=== PATIENT | male | born 1965 | race Caucasian/White ===

== ENCOUNTER 2017-07-01 02:25 | Inpatient (IN) | payer OTHER ==
[~2017-07-01] VITALS: Ht 170.2 cm; Wt 102.3 kg
[2017-07-01] VITALS (9 sets, daily range): BP systolic 121–146; BP diastolic 77–98; PULSE 63–110; RESP 18–22; O2SAT 93–98
[2017-07-01] MEDS ORDERED: Polyethylene Glycol (PEG) 17 Gm Powder PO PRN (05:00)
[2017-07-01] MEDS ORDERED: Alum-Mag Hydrox-Simeth 30 mL Suspension PO PRN (05:00)
[2017-07-01] MEDS ORDERED: Ondansetron 2 mg/mL 2 mL Inj IVPUSH PRN (05:00)
[2017-07-01] MEDS ORDERED: Acetaminophen IV 1,000 MG in IV Premix 1 EACH IV ONE (05:05)
[2017-07-01] MEDS ORDERED: Piperacillin-Tazo 3.375 Gm Inj 3.375 GM in Dextrose 5% Minibag Plus 50 ML IV ONE (05:05)
--- NOTE | 2017-07-01 05:13 | PCM.HPMED ---
Subjective Date of Service Jul 01, 2017 Primary Provider: Admitting Physician: Denisha Bashir DO Primary Care Physician: Keegan Whiting MD Attending Physician: Denisha Bashir DO Admit Status: Direct Admit (from [facility]) Chief Complaint: Altered mental status, sepsis History of Present Illness: Mathew Martin is a disheveled, sedated 51-year-old male who is a direct admission from [facility]. As he is unresponsive due to sedation and not in our EHR, we have very little information at this time in regards to his past medical history other than the fact that he is on dialysis with Dr. Whiting and has a cellulitic appearing LLE. The following history is taken from the [facility] record in his paper chart: Mathew finished his dialysis session around 2144 on 06/30/17, but became agitated and unsure of why he was there. He was taken to the hospital where it was found he was tachycardic, tachypneic, slightly febrile. His bloodwork was significant for a WBC count of 23.5, BUN/Cr of 4.3/6.1. Blood cultures were drawn and 1g of vancomycin was administered prior to transfer to [facility]. Review of Systems: A complete review of systems cannot be obtained due to patient unresponsiveness. Allergies Coded Allergies: No Known Drug Allergies (Unverified Allergy, Unknown, 07/01/17) No Known Allergies (Unverified , 07/01/17) Home Medications He presents from [facility] with a list of medications; however there are no doses so we are not sure of its accuracy. PMH CKD requiring Dialysis via Left AV fistula Surgical History Left AV Fistula Left Ankle Family History Unable to obtain due to patient's unresponsiveness. Social History Smoking Status: Unknown if Ever Smoker Exam Vital Signs Vital Sign - Last Date Time Temp Pulse Resp B/P Pulse Ox O2 Delivery O2 Flow Rate FiO2 07/01/17 04:44 110 07/01/17 04:18 38.3 20 121/77 97 Nasal Cannula 2.00 Exam General: Disheveled, foul-smelling, unkept male lying sedated in no acute distress. He is snoring quite loudly. HEENT: Normocephalic, atraumatic. External ears without defect. Pupils equal, round, and reactive to light and accommodation. Membranes pink and moist. Neck: Supple, nontender. No jugular venous distension or thyromegaly. Cardiovascular: Tachycardic with normal rhythm with no murmurs, rubs, or gallops appreciated. Left arm AV Fistula present. Pulmonary: Clear to auscultation bilaterally with no crackles, wheezes, or rhonchi. Abdomen: Bowel tones present. Soft, nontender, nondistended. No guarding/ rebound but patient is quite sedated. Extremities: He has long finger and toenails with dirt underneath the majority. LLE is erythematous, warm, nontender although this is hard to assess due to sedation. Skin: Normal temperature, turgor, and texture. LLE as above. Neurological: Unable to obtain due to patient's status Psychiatric: Unable to obtain due to patient's status. Lab and Diagnostics Labs Labs from [facility] in paper chart: H&H 8.8 and 26.1, WBC 23.5, platelets 348 Sodium 135, potassium 3.7, chloride 95, bicarbonate 25, BUN 4.3, creatinine 6.1 , glucose 92 Lactic acid 1.5 Microbiology Blood cultures drawn at [facility]; call for results as he was given vancomycin prior to transfer Assessment & Plan Mathew Martin is a disheveled, sedated 51-year-old male who is a direct admission from [facility]. As he is unresponsive due to sedation and not in our EHR, we have very little information at this time in regards to his past medical history other than the fact that he is on dialysis with Dr. Whiting and has a cellulitic appearing LLE. Metabolic encephalopathy, present on admission. Acute. Ongoing. - Unsure of etiology at this point due to patient status and scant history - Ammonia at [place] was within normal limits; not hypoglycemic with glucose 92 - Unlikely hypoxia as patient is saturating well - No accurate medication list with patient; day team to do med rec - UTox and UA ordered, pending - ABG ordered, pending Sepsis, present on admission. Acute. Ongoing. - Tachycardic, WBC 23.5 on admission with source likely LLE cellulitis - Lactic Acid was 1.5 at [place]; redrawn on admission - Pt received 1g vanco at [place] prior to transfer - 1 dose of Zosyn ordered for broad coverage, refine when history is obtainable - Repeat blood cultures ordered - Holding fluids at this time as he is stable and his LA was 1.5, unsure of how much fluid he received at [place] prior to transfer LLE Cellulitis, present on admission. Acute. Ongoing. - Unsure of duration, symptoms as patient is sedated - Blood cultures drawn at [place]; he received 1g vancomycin prior to transfer so ours may be uninformative - Pt received 1g vanco at [place], 1 dose Zosyn empirically on admission - Refine antibiotics when further history is obtainable or cultures return susceptibilities Anion Gap Metabolic Acidosis, present on admission. Acute. Ongoing. - Unlikely DKA/HHS as Glucose was 92; unlikely Lactic as LA was 1.5; salicylate level was negative - Unlikely ethylene glycol/methanol as patient attended dialysis without incident or noted mental status - Potentially due to recent dialysis and needs time to equilibrate - ABG ordered, pending - Gap is 36 using CMP from [place] - Will hold fluids at this time as he is stable pending repeat CMP CKD requiring Dialysis with Dr. Whiting, present on admission. Chronic. - Pt had dialysis session yesterday, ending at 9pm when his AMS started - Unsure of etiology (HTN, DM, CHF, etc.), baseline Cr or dry weight, schedule - Day team to contact Dr. Whiting's office for further elucidation if patient is unable to verify details - Nephrology consult ordered as he will likely need to dialyze at some point; day team to officially consult PRN Medications - Acetaminophen as needed for mild pain/fever/headache - Bowel regimen as needed - Antiemetic as needed Patient status: Patient is admitted under inpatient status with expected length of stay greater than 2 midnights due to severity of presenting symptoms, risk of adverse event, and complexity of treatment plan. VTE Prophylaxis: Sub-Q Heparin (Unfractionated) Resuscitation Status: CPR: Attempt Resuscitation Attending Statement The patient was seen and examined together with house staff on 07/01/2017 and I agree with the history, exam and plan as outlined in the note above. Godwin Norris DO Jul 01, 2017 05:13 Denisha Bashir DO Jul 01, 2017 06:09
[2017-07-01] MEDS ORDERED: 0.9% Sodium Chloride 250 ML ONE (05:29)
--- NOTE | 2017-07-01 05:57 | ABG ---
DateTimeAnalyzed 05:51:00 -_ HCO3- ___19.0__ -mmol/L 22.0 26.0 ABE ___-3.6__ -mmol/L -2.0 2.0 FIO2 ___21.0__ -% Drawn By AF - B 757 -mmHg tO2 ___11.6__ -Vol%
--- NOTE | 2017-07-01 06:15 | ABG ---
DateTimeAnalyzed 06:08:00 -_ pH ____7.460 - 7.350 7.450 pCO2 ___33.0__ -mmHg 35.0 45.0 pO2 ___77.6__ -mmHg 69.0 116 HCO3- ___23.2__ -mmol/L 22.0 26.0 ABE ____0.0__ -mmol/L -2.0 2.0 tHb ____7.9__ -g/dL 12.0 18.0 O2Hb ___92.8__ -% COHb ____1.7__ -% 0.0 1.5 MetHb ____1.2__ -% 0.4 1.5 sO2 ___95.6__ -% 25.0 FIO2 ___32.0__ -% Drawn By MK - Date/Time Notified____ 06:15:00 -_ Liter_Flow ____2.0__ -L/min Oxygen Device 1 __CANNULA - Notified By MK - B 757 -mmHg tO2 ___10.4__ -Vol% Michael test _Positive -
--- NOTE | 2017-07-01 07:12 | NUR ---
Admit Pt arrived on the floor lethargic. Responsive to yes or no questions by nodding. Pt is febrile. Administered Tylenol IV per MD. Telemetry monitoring noted ST. IV Zosyn administered per MD. Pt is very hard of hearing. Pt was agitated when awoken @0600 and spit on the staff's face. No significant history has been obtained as pt has been a poor historian.
[2017-07-01] MEDS: Heparin 5,000 Unit/mL Inj SUBQ SCH ×3 (07:37→23:54)
[2017-07-01 07:39] LABS: BASOPHILS % (AUTO) 0.1 % (0-3); MONOCYTES % (AUTO) 4.8 % (4-12); Mean Corpuscular Hemoglobin 30.1 pg (27.0-35.0); Mean Corpuscular Volume 95.1 fL (81-100); NEUTROPHILS % (AUTO) 89.5 % (40-74); Platelet Count 302 bil/L (150-400)
[2017-07-01] MEDS ORDERED: AMLO10TA3 PO (10:28)
[2017-07-01] MEDS ORDERED: SPIR50TA2 PO (10:28)
[2017-07-01] MEDS ORDERED: SEVE800T7 PO (10:28)
[2017-07-01] MEDS ORDERED: METO10TA7 PO (10:28)
[2017-07-01] MEDS ORDERED: NEPHVIT PO (10:28)
[2017-07-01] MEDS ORDERED: TORS100T3 PO (10:28)
--- NOTE | 2017-07-01 14:44 | NUR ---
mentation pt. this am drowsy, unable to stay awake during conversations; only answering some yes and no questions intermittently. Throughout shift, pt. has become more alert, knows he is in the hospital, does not remember why; pt. very [place], states that he isn't confused, he just can't hear. Pt. able to sit at eob, using call light appropriately; states he is feeling fine. Spoke with MD regarding ordering abx.
--- NOTE | 2017-07-01 15:23 | CONS ---
[address] [address] CONSULTATION REPORT PATIENT: JANINE PEACE : 1965 MR#: [id number] ADMIT: 07/01/2017 JOB ID: [id number] DATE OF SERVICE: 07/01/2017 NEPHROLOGY CONSULTATION: REQUESTING PHYSICIAN: Denisha Bashir DO. REASON FOR CONSULTATION: Management of end-stage renal disease. CHIEF COMPLAINT: Altered mental status, transferred from [facility]. PRESENT ILLNESS: This is a 51-year-old, male with history of end-stage renal disease with dialysis dependence who was transferred directly from [facility] due to altered mental status. The patient is very drowsy. He is a very poor historian. I cannot obtain any meaningful history from the patient. History was obtained from the medical record. According to the chart and admission note, he finished dialysis last night and found to be agitated and disoriented. He was brought to the emergency department, where he was found to have tachycardia and fever. Initial blood work showed leukocytosis with WBC of 23.5. Blood cultures were obtained. He received 1 g of vancomycin and subsequently was transferred to [facility]. He is a patient of Dr. Whiting. He is dialyzed at [facility]. According to the medication list he takes amlodipine, metolazone, Renvela, spironolactone, torsemide and Hernan-Piyush. He was found to have cellulitis on the left lower extremity. His initial white blood count here at our hospital was 15.6. Procalcitonin was 4.98. Blood culture by far is pending. He is currently on Zosyn 3.375 g given x1 last night. Renal was consulted to resume dialysis while he is hospitalized. PAST MEDICAL HISTORY: 1. End-stage renal disease, hemodialysis dependent, on dialysis every Thursday, , Thursday at [facility]. He is the patient of Dr. Whiting. 2. Hypertension. 3. Anemia of chronic kidney disease. 4. Renal osteodystrophy. PAST SURGICAL HISTORY: Status post left AV fistula creation. FAMILY HISTORY: Unable to obtain. SOCIAL HISTORY: Unable to obtain. MEDICATION: Reviewed. He takes amlodipine, metolazone, Renvela, spironolactone, torsemide, vitamin B complex and vitamin C. ALLERGIES: No known drug allergies. REVIEW OF SYSTEMS: Unable to obtain due to altered mental status. PHYSICAL EXAMINATION: Vitals: Temperature 36.9, T-max was 38.3, pulse 90, respiratory rate 20, blood pressure 128/77, O2 sat 96% on nasal cannula 3 L. General appearance: Poor hygiene, drowsy, answered only yes and no questions, disheveled. HEENT: Atraumatic. Moist mucous membranes. PERRLA. Normocephalic. Neck: No JVD. No lymphadenopathy. No thyroid enlargement. Heart: Regular rhythm. Normal S1, S2. No murmur, rubs, or gallops. Lungs: Clear to auscultation bilaterally. No wheezing. No rhonchi. No crackles. Abdomen: Soft, active bowel sounds. Nontender. Nondistended. No hepatosplenomegaly. Extremities: Mild edema on the left upper extremity. Positive for AV fistula with weak thrill and bruit. Left lower extremity is positive for redness, warm. ASSESSMENT: 1. Altered mental status secondary to metabolic encephalopathy. 2. Sepsis. 3. Skin and soft tissue infection. 4. End-stage renal disease, on hemodialysis every Thursday, , Thursday. 5. Anemia of chronic kidney disease. 6. Renal osteodystrophy. 7. Hypertension. PLAN: 1. We will obtain more past medical history from his primary rn [facility]. 2. Will obtain hemodialysis prescription from [facility]. 3. No urgent dialysis indicated today. We will schedule dialysis for tomorrow. 4. Pending finalized blood cultures. 5. Continue antibiotics to cover skin and soft tissue infection. Thank you for allowing me to participate in the care of your patient. We will monitor along with you.
[2017-07-01 15:47] LABS: APPEARANCE,URINE CLEAR (CLEAR,HAZY); COLOR,URINE YELLOW (YELLOW); OCCULT BLOOD,URINE MODERATE (NEGATIVE); PH,URINE 6.5 (5.0-8.0); UROBILINOGEN,URINE NORMAL (NORMAL)
--- NOTE | 2017-07-01 16:45 | NUR ---
Social Work-initial assessment/multidisciplinary rounds: Data:See initial assessment. Pt is a 51 y/o male who was admitted on 07/01/17 for AMS per H&P. Pt's insurance is [employer] and PCP is Keegan Whiting MD. EMR reviewed. SW met with pt at bedside, SW role explained. Pt resides at home alone in [place] where he remains independent with ADLs. Pt drives and does not use any DME. Pt has no HH or SNF history. Pt has no residential care insurance or VA benefits. SW discussed DPOA/ advanced directive, pt confirms he has completed this, SW encouraged a copy to be brought into the hospital. Pt confirms he goes to dialysis on / Sat in [facility]. No concerns noted in morning rounds regarding pt's capacity for self care from RN or MD. Pt has been up independent in his room. SW provided pt with discharge planning checklist and encouraged pt to call with any questions, phone number provided. Pt states he will will family provide transport home at discharge. No MD orders received for SW. SW will continue to follow. Assessment:Pt who is independent at baseline. Plan:Pt to discharge home when medically stable via POV. No anticipated discharge needs. SW will continue to follow. IGNACIA Rodas Addendum: 07/01/17 at 1653 by FLOR RIDDLE SS Amended: Links added.
--- NOTE | 2017-07-01 18:59 | NUR ---
Evaluation completed. Please go to "Notes" then click on "Assessments and Notes" (bottom left corner of screen). Then select appropriate discipline tab on top of screen.
[2017-07-01] MEDS: Piperacillin-Tazo 3.375 Gm Inj 3.375 GM in Dextrose 5% Minibag Plus 50 ML IV SCH (19:05)
[2017-07-02] VITALS (7 sets, daily range): BP systolic 109–148; BP diastolic 50–82; PULSE 93–103; RESP 20–22; O2SAT 90–97
[2017-07-02 06:46] LABS: BASOPHILS % (AUTO) 0.3 % (0-3); EOSINOPHILS % (AUTO) 4.1 % (0-5); MONOCYTES % (AUTO) 11.3 % (4-12); Mean Corpuscular Hemoglobin 29.8 pg (27.0-35.0); Mean Corpuscular Volume 95.6 fL (81-100); NEUTROPHILS % (AUTO) 70.7 % (40-74); Platelet Count 306 bil/L (150-400)
--- NOTE | 2017-07-02 07:25 | NUR ---
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 Sats were high 80s to normal while asleep. Pt slept intermittently during night, seemed forgetful but oriented to self and year, able to say he is in hospital or sometimes "[facility]." Pt appeared agitated at times and would yell out, however was appropriate with staff and voiced needs. Pt kept NPO after midnight.
[2017-07-02 07:46] LABS: INR 1.01 ratio
--- NOTE | 2017-07-02 09:02 | NUR ---
NPO Pt NPO after MN for procedure, sign placed outside room. Tray delivered to pt, who ate 100% of breakfast. MD aware and rescheduled for AM.
[2017-07-02] MEDS: Vitamin B Complex/Vit C Tablet PO SCH (09:22)
[2017-07-02] MEDS: Piperacillin-Tazo 3.375 Gm Inj 3.375 GM in Dextrose 5% Minibag Plus 50 ML IV SCH ×2 (09:22→20:34)
[2017-07-02] MEDS: Heparin 5,000 Unit/mL Inj SUBQ SCH ×2 (09:26→16:59)
--- NOTE | 2017-07-02 10:57 | PCM.PNNEPH ---
Subjective Date of Service Jul 02, 2017 Subjective Per his diabetes solutions specialist, Dr. Whiting. The patient is mentally delayed. He has h/o chronic GN related kidney disease, hypertension and renal osteodystrophy. AVF has not been functioning well with poor blood flow during HD. He is supposed to be NPO for fistulogram today but already had breakfast this morning. Exam Vital Signs Vital Sign - Last Date Time Temp Pulse Resp B/P Pulse Ox O2 Delivery O2 Flow Rate FiO2 07/02/17 08:54 37.1 99 20 137/72 92 Room Air 07/01/17 23:45 3.00 Intake and Output 07/01/17 07/01/17 07/02/17 Cumulative From/Thru 15:00 23:00 07:00 07/01/17 04:19 - 07/02/17 06:20 Intake Total 0 ml 663 ml 663 ml Output Total 150 ml 575 ml 725 ml Balance -150 ml 88 ml -62 ml Intake Oral 0 ml 663 ml 663 ml Output Urine Total 150 ml 575 ml 725 ml # Voids 1 1 # Bowel Movements 0 0 Exam General appearance: Poor hygiene, more awake today, answered only yes and no, disheveled. HEENT: Atraumatic. Moist mucous membranes. PERRLA. Normocephalic. Neck: No JVD. No lymphadenopathy. No thyroid enlargement. Heart: Regular rhythm. Normal S1, S2. No murmur, rubs, or gallops. Lungs: Clear to auscultation bilaterally. No wheezing. No rhonchi. No crackles. Abdomen: Soft, active bowel sounds. Nontender. Nondistended. No hepatosplenomegaly. Extremities: Mild edema on the left upper extremity. Positive for AV fistula with weak thrill and bruit. Left lower extremity is positive for redness, warm. Lab and Diagnostics Result Diagram: 07/02/1763307/02/17633 Microbiology Blood cultures drawn at [facility]; call for results as he was given vancomycin prior to transfer Plan Impression ASSESSMENT: 1. Altered mental status secondary to metabolic encephalopathy. 2. Sepsis. 3. Skin and soft tissue infection. 4. End-stage renal disease, on hemodialysis every Thursday, , Thursday. 5. Anemia of chronic kidney disease. 6. Renal osteodystrophy. 7. Hypertension. 8. Malfunctioning AVF. 9. H/o chronic glomerulonephritis. PLAN: 1. Try HD today. 2. Reschedule for fistulogram in am. 3. Continue IV abx. 4. Add aranesp 60 mcg subQ x 1 today. Danis Lion MD Jul 02, 2017 10:57
[2017-07-02] MEDS ORDERED: Darbepoetin Alfa 60 mCg/0.3 mL Inj SUBQ ONE (11:05)
--- NOTE | 2017-07-02 11:12 | NUR ---
Off unit to dialysis Pt off unit to dialysis, loader technician notified. MOC called to give report, accepting RN will call back.
--- NOTE | 2017-07-02 13:39 | NUR ---
02 Pt on 3L via NC this AM, repeatedly pulling 02 off and maintaining 02 sats low-mid 90's with no c/o SOB. 02 off at ~1030 and has been RA since.
--- NOTE | 2017-07-02 15:45 | PCM.PNMED ---
Subjective Date of Service Jul 02, 2017 Subjective Patient unfortunately ate this morning prior to placement of hemodialysis catheter. Urology believes current fistula may be malfunctioning and account for difficulty inadequate dialysis. Plan is now for a trial dialysis therapy through current port today, and reconsider catheter placement in a.m., with patient made nothing by mouth after midnight. Patient notes he is still having some pain in the right leg but this is significantly improved. Denies any fever or chills. His mentation is much improved overnight though he is still very sleepy and napping through much of the day. Exam Vital Signs Vital Sign - Last Date Time Temp Pulse Resp B/P Pulse Ox O2 Delivery O2 Flow Rate FiO2 07/02/17 11:21 93 07/02/17 08:54 37.1 20 137/72 92 Room Air 07/01/17 23:45 3.00 Intake and Output 07/01/17 07/01/17 07/02/17 Cumulative From/Thru 15:00 23:00 07:00 07/01/17 04:19 - 07/02/17 06:20 Intake Total 0 ml 663 ml 663 ml Output Total 150 ml 575 ml 725 ml Balance -150 ml 88 ml -62 ml Intake Oral 0 ml 663 ml 663 ml Output Urine Total 150 ml 575 ml 725 ml # Voids 1 1 # Bowel Movements 0 0 General: Alert, Cooperative, Mild Distress, Other (patient mentation appears somewhat slowed however he is alert, appropriate in response to questions. ) Mouth: Mucous Membr Moist/Burgin Chest & Lungs: Clear to auscultation & percussion Cardiovascular: Regular Rate/Rhythm Abdomen: Non-tender, Other (obese) Extremities: No cyanosis/clubbing/edma bilat, Other (area of warmth and erythema still present on the lower calf, more prominent between ankle to lower one half of leg and anterior medial side. No induration or subcutaneous abscess is palpable. Dorsal pedis pulses are intact bilaterally. ) Neurological: Grossly Neurologically Intact, Other IVs and Medications Medications Reviewed: Medications were reviewed in detail Lab and Diagnostics Result Diagram: 07/02/1763307/02/17633 Microbiology Blood cultures drawn at [facility]; call for results as he was given vancomycin prior to transfer Assessment & Plan Mathew Martin is a disheveled, sedated 51-year-old male who is a direct admission from [facility]. As he is unresponsive due to sedation and not in our EHR, we have very little information at this time in regards to his past medical history other than the fact that he is on dialysis with Dr. hWiting and has a cellulitic appearing LLE. Metabolic encephalopathy, present on admission. Acute. Ongoing. - Unsure of etiology at this point due to patient status and scant history - Ammonia at [place] was within normal limits; not hypoglycemic with glucose 92 - Unlikely hypoxia as patient is saturating well - No accurate medication list with patient; day team to do med rec - UTox was positive for methamphetamine which could certainly have been a contributor factor - UA demonstrated no evidence of urine infection ordered, pending - Though it does not appear severe cellulitic infection of leg may have also accounted for patient's altered mentation , or at least contributed especially in the setting of comorbid amphetamine abuse . Sepsis, present on admission. Resolved - Tachycardic, WBC 23.5 on admission with source likely LLE cellulitis - Lactic Acid was 1.5 at [place]; redrawn on admission - Pt received 1g vanco at [place] prior to transfer - 1 dose of Zosyn ordered for broad coverage, refine when history is obtainable - Repeat blood cultures ordered, negative results to date. - Valentine production fluids were held, patient is hemodynamically stable this time. LLE Cellulitis, present on admission. Acute. Ongoing. - Unsure of duration, symptoms improving - Blood cultures drawn at [place]; he received 1g vancomycin prior to transfer so ours may be uninformative - Pt received 1g vanco at [place], 1 dose Zosyn empirically on admission - Zosyn continue at this time with renal dosing, divided every 12 hours, and after dialysis when possible. Anion Gap Metabolic Acidosis, present on admission. Acute. Ongoing. - Unlikely DKA/HHS as Glucose was 92; unlikely Lactic as LA was 1.5; salicylate level was negative - Unlikely ethylene glycol/methanol as patient attended dialysis without incident or noted mental status - Potentially due to recent dialysis and needs time to equilibrate - ABG ordered, pending - Gap is 36 using CMP from [place], - Will hold fluids at this time as he is stable pending repeat CMP CKD requiring Dialysis with Dr. Whiting, present on admission. Chronic. - Pt had dialysis session 1 day prior to admission, ending at 9pm when his AMS started - Unsure of etiology (HTN, DM, CHF, etc.), baseline Cr or dry weight, schedule - Nephrology consulted and managing dialysis palpation hospitalized - I have significant concern for his hemodialysis before, recommending dialysis catheter placement tomorrow. - Patient will be kept nothing by mouth after midnight in anticipation. Disposition: Cultures from our hospital in addition to cascade remain negative we will consider discharge home as soon as tomorrow should dialysis catheter placement be achieved, with likely transition to oral antibiotic therapy. PRN Medications - Acetaminophen as needed for mild pain/fever/headache - Bowel regimen as needed - Antiemetic as needed Patient status: Patient is admitted under inpatient status with expected length of stay greater than 2 midnights due to severity of presenting symptoms, risk of adverse event, and complexity of treatment plan. Pain Evaluation: Adequate Pain Control VTE Prophylaxis: Sub-Q Heparin (Unfractionated) VTE Mechanical Devices: Venous Foot Pump Resuscitation Status: CPR: Attempt Resuscitation Time spent 30 minutes Abdoulaye Moreau DO Jul 02, 2017 15:45
--- NOTE | 2017-07-02 15:45 | NUR ---
Dialysis note: 4 hrs tx 4000 ml net UF Left upper arm fistula, accessed w/ no problems Pls see DTR for VS details Qb 300-400 Heparin given O2 @ 2L via NC on during tx Tolerated tx, restless at times, slept at intervals Fistula needle sites clotted w/in 10 min Stable condition at end of tx Report given to Colleen TIJERINA
--- NOTE | 2017-07-02 16:15 | NUR ---
Back on unit Pt back on unit from dialysis, alert and cooperative with cares. Denies any pain/discomfort at this time. zoning technician aware.
--- NOTE | 2017-07-02 17:03 | NUR ---
Diet Waiver Pt upset with diet consistency, currently puree with pudding thick liquids. Discussed rationale behind diet and increased risk for aspiration, pneumonia up to . Pt is alert, oriented and reports understanding. Waiver signed. aware, ordered a HH Renal, thin liquid diet. Pt tolerating well thus far.
[2017-07-03] MEDS: Heparin 5,000 Unit/mL Inj SUBQ SCH ×3 (00:33→16:30)
[2017-07-03 01:45] VITALS: BP 109/68; PULSE 83; RESP 20; O2SAT 94
[2017-07-03 05:46] VITALS: PULSE 92
[2017-07-03 05:53] VITALS: BP 144/91; PULSE 90; RESP 22; O2SAT 97
--- NOTE | 2017-07-03 06:21 | NUR ---
Mentation Appears a/o all shift with significant hearing issues per baseline. Uncooperative at times with care. Currently resting without any complaints.
[2017-07-03 06:30] LABS: BASOPHILS % (AUTO) 0.6 % (0-3); EOSINOPHILS % (AUTO) 5.7 % (0-5); MONOCYTES % (AUTO) 15.1 % (4-12); Mean Corpuscular Hemoglobin 29.4 pg (27.0-35.0); Mean Corpuscular Volume 96.2 fL (81-100); NEUTROPHILS % (AUTO) 58.2 % (40-74); Platelet Count 338 bil/L (150-400)
[2017-07-03 08:00] VITALS: PULSE 92
[2017-07-03] MEDS: Vitamin B Complex/Vit C Tablet PO SCH (08:07)
--- NOTE | 2017-07-03 08:19 | NUR ---
IV This AM pt's IV's x2 became dislodged. Pt reports being a difficult stick, IVT contacted.
[2017-07-03] MEDS: Piperacillin-Tazo 3.375 Gm Inj 3.375 GM in Dextrose 5% Minibag Plus 50 ML IV SCH (08:57)
[2017-07-03 09:51] VITALS: BP 156/84; PULSE 87; RESP 18; O2SAT 96
--- NOTE | 2017-07-03 11:20 | NUR ---
NPO Pt NPO this AM for procedure, NPO sign placed outside room on door. Tray delivered and pt consumed approx 2 bites of toast. MD aware, fistulagram cancelled for this AM.
--- NOTE | 2017-07-03 11:45 | PCM.PNNEPH ---
Subjective Date of Service Jul 03, 2017 Subjective HD yesterday, relatively good blood flow. Fistulogram was postponed since he had breakfast this morning. Exam Vital Signs Vital Sign - Last Date Time Temp Pulse Resp B/P Pulse Ox O2 Delivery O2 Flow Rate FiO2 07/03/17 09:51 36.8 87 18 156/84 96 Room Air 07/01/17 23:45 3.00 Intake and Output 07/02/17 07/02/17 07/03/17 Cumulative From/Thru 15:00 23:00 07:00 07/01/17 04:19 - 07/03/17 05:53 Intake Total 70 ml 900 ml 253 ml 1886 ml Output Total 4000 ml 100 ml 100 ml 4925 ml Balance -3930 ml 800 ml 153 ml -3039 ml Intake Oral 900 ml 253 ml 1816 ml IV Total 70 ml 0 ml 70 ml Output Urine Total 100 ml 100 ml 925 ml Ultrafiltrate 4000 ml 4000 ml # Voids 1 2 # Bowel Movements 0 0 Exam General appearance: Poor hygiene, more awake today, answered only yes and no, disheveled. HEENT: Atraumatic. Moist mucous membranes. PERRLA. Normocephalic. Neck: No JVD. No lymphadenopathy. No thyroid enlargement. Heart: Regular rhythm. Normal S1, S2. No murmur, rubs, or gallops. Lungs: Clear to auscultation bilaterally. No wheezing. No rhonchi. No crackles. Abdomen: Soft, active bowel sounds. Nontender. Nondistended. No hepatosplenomegaly. Extremities: Mild edema on the left upper extremity. Positive for AV fistula with weak thrill and bruit. Left lower extremity is positive for redness, warm. Lab and Diagnostics Result Diagram: 07/03/1761807/03/17618 Microbiology Blood cultures drawn at [facility]; call for results as he was given vancomycin prior to transfer Plan Impression ASSESSMENT: 1. Altered mental status secondary to metabolic encephalopathy. 2. Sepsis. 3. Skin and soft tissue infection. 4. End-stage renal disease, on hemodialysis every Thursday, , Thursday. 5. Anemia of chronic kidney disease. 6. Renal osteodystrophy. 7. Hypertension. 8. Malfunctioning AVF. 9. H/o chronic glomerulonephritis. PLAN: Next HD on Thu. If he is hospitalized til Thursday, will likely perform fistulogram on that day. Otherwise, will reschedule as OP. Danis Lion MD Jul 03, 2017 11:45
[2017-07-03 14:30] VITALS: BP 139/90; PULSE 82; RESP 18; O2SAT 95
[2017-07-03] MEDS ORDERED: AMOX-363 PO (15:56)
[2017-07-03] MEDS ORDERED: NICO1PAT6 TOPICAL (15:56)
--- NOTE | 2017-07-03 15:58 | PCM.DIMED ---
Discharge Instructions Date of Service Jul 03, 2017 Dates of Hospitalization Jul 01, 2017 at 04:14 Discharge Diagnosis Discharge Diagnosis Right leg cellulitis, end-stage renal disease on hemodialysis Diet Discharge Diet: Renal Diet Activity Discharge Activity: Other (as tolerated) Call your provider Call your provider for: Fever or Chills, Shortness of breath, Bleeding, Chest pain, Vomitting, Excessive diarrhea, Weakness (unilateral) Patient Instructions Follow-up Provider: Keegan Whiting MD Follow-up with PCP in: Other (4-5 days sooner if problems) Padmini Davis MD Jul 03, 2017 15:57
--- NOTE | 2017-07-03 16:06 | PCM.DC.MED ---
Discharge Summary Date of Service Jul 03, 2017 Dates of Hospitalization Date of Hospital Admission Jul 01, 2017 at 04:14 Date of Discharge: Jul 03, 2017 Providers: Admitting Physician: Denisha Bashir DO Primary Care Physician: Keegan Whiting MD Attending Physician: Padmini Davis MD Diagnosis at Time of Discharge Diagnosis at Time of Discharge Right leg cellulitis, end-stage renal disease on hemodialysis Consultations Nephrology Brief History Mathew Martin is a disheveled, sedated 51-year-old male who is a direct admission from [facility]. As he is unresponsive due to sedation and not in our EHR, we have very little information at this time in regards to his past medical history other than the fact that he is on dialysis with Dr. Whiting and has a cellulitic appearing LLE. The following history is taken from the [facility] record in his paper chart: Mathew finished his dialysis session around 2144 on 06/30/17, but became agitated and unsure of why he was there. He was taken to the hospital where it was found he was tachycardic, tachypneic, slightly febrile. His bloodwork was significant for a WBC count of 23.5, BUN/Cr of 4.3/6.1. Blood cultures were drawn and 1g of vancomycin was administered prior to transfer to [facility]. Hospital Course Mathew Martin is a disheveled, sedated 51-year-old male who is a direct admission from [facility]. As he is unresponsive due to sedation and not in our EHR, we have very little information at this time in regards to his past medical history other than the fact that he is on dialysis with Dr. Whiting and has a cellulitic appearing LLE. Metabolic encephalopathy, present on admission. Acute. Ongoing. - Unsure of etiology at this point due to patient status and scant history - Ammonia at [place] was within normal limits; not hypoglycemic with glucose 92 - Unlikely hypoxia as patient is saturating well - No accurate medication list with patient; day team to do med rec - UTox was positive for methamphetamine which could certainly have been a contributor factor - UA demonstrated no evidence of urine infection ordered, pending - Though it does not appear severe cellulitic infection of leg may have also accounted for patient's altered mentation , or at least contributed especially in the setting of comorbid amphetamine abuse . Sepsis, present on admission. Resolved - Tachycardic, WBC 23.5 on admission with source likely LLE cellulitis - Lactic Acid was 1.5 at [facility]; redrawn on admission - Pt received 1g vanco at [facility] prior to transfer - 1 dose of Zosyn ordered for broad coverage, refine when history is obtainable - Repeat blood cultures ordered, negative results to date. LLE Cellulitis, present on admission. Acute. Ongoing. - Unsure of duration, symptoms improving - Blood cultures drawn at [facility]; he received 1g vancomycin prior to transfer so ours may be uninformative - Pt received 1g vanco at [facility], 1 dose Zosyn empirically on admission - Zosyn continue at this time with renal dosing, divided every 12 hours, and after dialysis when possible. -Markedly improved with resolution of sepsis and now normal white count so will discharge to home on renally adjusted, end-stage renal disease on hemodialysis dose of Augmentin 500/125 by mouth daily x 7 days Anion Gap increased, present on admission. Acute. Improving. - Unlikely DKA/HHS as Glucose was 92; unlikely Lactic as LA was 1.5; salicylate level was negative - Unlikely ethylene glycol/methanol as patient attended dialysis without incident or noted mental status - Potentially due to recent dialysis and needs time to equilibrate - ABG ordered, pending - Gap is 36 using CMP from [facility], - Will hold fluids at this time as he is stable pending repeat CMP -Be related to phosphate level was not checked this admission and will not hold discharge because of this. CKD requiring Dialysis with Dr. Whiting, present on admission. Chronic. - Pt had dialysis session 1 day prior to admission, ending at 9pm when his AMS started - Unsure of etiology (HTN, DM, CHF, etc.), baseline Cr or dry weight, schedule - Nephrology consulted and managing dialysis palpation hospitalized - I have significant concern for his hemodialysis before, recommending dialysis catheter placement tomorrow. - Patient will be kept nothing by mouth after midnight in anticipation. Patient was not able to have fistulogram done because he was not Nothing by mouth as ordered the past 2 days. -Since he is stable for discharge from the cellulitis perspective he will need to have this done as an outpatient. -He was dialyzed here at [facility] and did not have any significant problems with this. PRN Medications - Acetaminophen as needed for mild pain/fever/headache - Bowel regimen as needed - Antiemetic as needed Exam Vital Signs (Last) Date Time Temp Pulse Resp B/P Pulse Ox O2 Delivery O2 Flow Rate FiO2 07/03/17 14:30 36.7 82 18 139/90 95 Room Air 07/01/17 23:45 3.00 Exam Constitutional: Middle-aged developmentally delayed male in no acute distress Head: Normocephalic atraumatic Chest: Clear to auscultation Cor: Regular rate and rhythm S1-S2 without murmur Abdomen: Soft nontender bowel sounds present Extremities: Right side has markedly improved erythema and swelling of the right lower leg: Alert and oriented 3, motor strength is intact bilaterally Psych: Blunted affect Test 07/01/17 07:30 07/01/17 15:03 07/02/17 06:34 07/02/17 06:35 Lactic Acid Level 1.1mmol/L (0.4-2.0) Procalcitonin 4.98ng/mL (0.00-0.08) Urine Color Yellow (YELLOW) Urine Appearance Clear (CLEAR,HAZY) Urine pH 6.5 (5.0-8.0) Urine Specific [place] 1.015 (1.003-1.035) Urine Protein 300mg/dL (NEG,TRACE) Urine Glucose (UA) 100mg/dL (NEGATIVE) Urine Ketones Negativemg/dL (NEGATIVE) Urine Occult Blood Moderate (NEGATIVE) Urine Nitrite Negative (NEGATIVE) Urine Bilirubin Negative (NEGATIVE) Urine Urobilinogen Normalmg/dL (NORMAL) Urine Leukocyte Esterase Negative (NEGATIVE) Urine RBC 0-2/hpf (0-2) Urine WBC 0-5/hpf (0-5) Urine Epithelial Cells Occasional/hpf (NONE-MOD) Urine Crystals None seen (NONE SEEN) Urine Bacteria None/hpf (NONE-FEW) Urine Hyaline Casts None/lpf (NONE) Urine Granular Casts None seen (NONE SEEN) Urine Waxy Casts None seen (NONE SEEN) Urine Red Blood Cell Casts None seen (NONE SEEN) Urine White Blood Cell Casts None seen (NONE SEEN) Urine Mucus None seen (None Seen) Urine Trichomonas None seen (NONE SEEN) Urine Yeast None (NONE SEEN) Urinalysis Comment None Urine Culture Reflexed Not indicated Urine Opiates Screen Negative Urine Methadone Screen Negative Urine Barbiturates Screen Negative Urine Amphetamines Screen Positive Urine Benzodiazepines Screen Positive Urine Cocaine Metabolite Screen Negative Urine Cannabinoids Screen Negative Prothrombin Time 10.8sec (8.1-12.5) Prothromb Time International Ratio 1.01ratio Activated Partial Thromboplast Time 39.4sec (22.8-33.0) Hold Kat Top Tube Received (Received) Test 07/03/17 06:19 White Blood Count 8.2th/mm3 (3.8-10.1) Red Blood Count 2.89mil/mm3 (4.40-5.80) Hemoglobin 8.5g/dL (13.8-17.2) Hematocrit 27.8% (41.0-50.0) Mean Corpuscular Volume 96.2fL (81-100) Mean Corpuscular Hemoglobin 29.4pg (27.0-35.0) Mean Corpuscular Hemoglobin Concent 30.6% (32.0-37.0) Red Cell Distribution Width 17.8% (12.3-15.4) Platelet Count 338bil/L (150-400) Neutrophils (%) (Auto) 58.2% (40-74) Lymphocytes (%) (Auto) 19.1% (14-46) Monocytes (%) (Auto) 15.1% (4-12) Eosinophils (%) (Auto) 5.7% (0-5) Basophils (%) (Auto) 0.6% (0-3) Sodium Level 137mEq/L (134-144) Potassium Level 4.2mEq/L (3.5-5.2) Chloride Level 92mEq/L (97-108) Carbon Dioxide Level 23mmol/L (18-29) Blood Urea Nitrogen 49mg/dL (6-24) Creatinine 6.20mg/dL (0.76-1.27) Estimat Glomerular Filtration Rate 10mL/min (>59) Glucose Level 101mg/dL (60-99) Calcium Level 9.0mg/dL (8.5-10.1) Total Bilirubin 0.2mg/dL (0.0-1.2) Aspartate Amino Transf (AST/SGOT) 42U/L (0-50) Alanine Aminotransferase (ALT/SGPT) 30U/L (0-44) Alkaline Phosphatase 106U/L (25-150) Total Protein 6.8g/dL (6.4-8.4) Albumin 3.6g/dL (3.4-5.0) Microbiology Results Blood cultures drawn at [place]; call for results as he was given vancomycin prior to transfer Discharge Medications Discharge Medications Amlodipine (Amlodipine) 10 Mg Tablet 10 MG PO DAILY (Reported) Amoxicillin/Clav K 500-125 mg (Augmentin 500-125 mg) 1 Each Tablet 1 TABLET PO DAILY Prescribed by: PADMINI DAVIS MD Metolazone (Metolazone) 10 Mg Tablet 10 MG PO DAILY (Reported) Nicotine 21 mg/24 hr Patch (Nicotine 21 mg/24 hr Patch) 1 Each Patch.td24 1 PATCH TOPICAL DAILY Prescribed by: PADMINI DAVIS MD Sevelamer Carbonate (Renvela) 800 Mg Tablet 2,400 MG PO TIDWM (Reported) Spironolactone (Spironolactone) 50 Mg Tablet 50 MG PO HS (Reported) Torsemide (Torsemide) 100 Mg Tablet 100 MG PO DAILY (Reported) Vitamin B Complex/Vit C (Ilene-Piyush Tablet) 1 Tab Tab 1 TAB PO DAILY (Reported) Followup Plan Discharge Diet: Renal Diet Discharge Activity: Other (as tolerated) Follow-up Provider: Keegan Whiting MD Follow-up with PCP in: Other (4-5 days sooner if problems) Time spent 60 minutes copies to: Keegan Whiting MD, Cheryl A MD Jul 03, 2017 16:06
--- NOTE | 2017-07-03 18:21 | NUR ---
Social Work: Brief Note EDUARDO spoke with [employer]UARDO [employer] Shift Supervisor Jennifer regarding transportation need for patient. Jennifer approved for transportation to be arranged via [employer] . EDUARDO spoke with primary RN Va and instructed her to contact [employer] for transportation. Va informed EDUARDO that she had already spoken with [employer] and was informed that they would call back. If [employer] is unable to transport patient, Va has been informed by EDUARDO to contact [employer] and provide them with the following information: To:From: [facility] [id number] [phone] Transport will be paid for by hospital account. IGNACIA Reece
--- NOTE | 2017-07-03 18:36 | NUR ---
Discharge planning Pt transferred from [facility] without keys, wallet, clothing/shoes, etc. Pt is also extremely [place]. EDUARDO provided pt with a bus pass and pt expressed concerns that he would not be brought to his car or home and be stranded at a bus station. Spoke with EDUARDO Vela who authorized pt to get a taxi from [facility] to home. Phoned Katelyn Salvador who stated would call this RN back. Spoke with JOAN Bates who also suggested calling [employer] if [employer] unavailable.
--- NOTE | 2017-07-03 19:01 | NUR ---
DISCHARGE Pt discharged home this evening via cab, off unit in w/c. Pt A&O, denies any pain and in no apparent distress. IV dc'd intact, only belonging was a knife which was returned. All instructions for diet, activity, medications, prescriptions and follow up reviewed with pt who reports understanding. Also discussed and wrote down instructions for fistulagram on Thursday, 07/07 at 0830 and prep required for that. Pt reported understanding, also provided phone number for QAMAR if pt has any questions.
--- NOTE | 2017-07-04 10:09 | DRSVH ---
PROCEDURE: US DUPLEX DOPPLER OF DIALYSIS SHUNT ([id number]) INDICATIONS: check patency of left AVF TECHNIQUE: Color and pulse Doppler interrogation was performed of the upper extremity arteriovenous fistula, wit h image documentation. COMPARISON: None. FINDINGS: [place] vessel inflow: 83 cm/sec. Proximal fistula anastomosis: 200 cm/sec. Mid fistula: 170 cm/sec. [place] vessel outflow: Not evaluated. Intraluminal thrombus: None. Fistula diameter: Dilatation of the mid venous limb measuring up to 1.9 cm. Volume of flow: 0.71 L per minute. Hematoma seen adjacent to the venous limb measuring 1.5 x 1.9 x 2.5 cm. IMPRESSION: 1. 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 2. Complex fluid collection adjacent to the venous limb likely a small hematoma. Dictated by: Pa BONNER Interpreted: Flavia Echevarria MD on 07/03/2017 at 15:03 Approved by: Flavia Echevarria M.D. on 07/04/2017 at 10:08
== END 2017-07-03 19:21 | disposition home or self-care (01) | DRG 871 ==
LOC: MPC 04:14
PROVIDERS: ADMIT Internal Medicine; ATTEND Specialist
PROC: 4A033R1 Measurement of Arterial Saturation, Peripheral, Percutaneous Approach (ICD-10-PCS; 2017-07-01)
PROC: 5A1D00Z (ICD-10-PCS; principal; 2017-07-02)
DX: A41.9 Sepsis, unspecified organism (principal); G93.41 Metabolic encephalopathy; E87.2 Acidosis; N18.6 End stage renal disease; I12.0 Hypertensive chronic kidney disease with stage 5 chronic kidney disease or end stage renal disease; L03.116 Cellulitis of left lower limb; Z99.2 Dependence on renal dialysis; D63.1 Anemia in chronic kidney disease